=== PATIENT | male | born 1960 | race Caucasian/White ===

== ENCOUNTER 2021-12-10 13:22 | Inpatient (IN) | payer OTHER ==
[~2021-12-10] VITALS: Ht 190.5 cm; Wt 131.5 kg
[2021-12-10 13:22] VITALS: BP_SYST 144
--- NOTE | 2021-12-10 13:25 | NUR ---
BROUGHT IN BY [facility] AND TRIAGED. WILL ASSUME CARE. DR HSU EVALUATING PT UPON ARRIVAL TO ER.
--- NOTE | 2021-12-10 13:25 | NUR ---
PT STATES HE WAS PREVIOUSLY DX WITH GALLSTONES WHILE AT [facility] AND NEVER DID FOLLOW UP FOR SURGERY. ARRIVES TO ER TODAY WITH RIGHT UPPER QUAD PAIN WITH NAUSEA. PT STATES HE NOW IS READY TO GET HIS GALLBLADDER OUT.
[2021-12-10] MEDS ORDERED: KETOROLAC TROMETHAMINE 60 MG/2 ML VIAL IM ONE (13:30)
[2021-12-10] MEDS ORDERED: ONDANSETRON 4 MG ODT TAB PO ONE (13:30)
[2021-12-10] MEDS ORDERED: ROSU10TA2 PO (13:32)
[2021-12-10] MEDS ORDERED: ATEN-41 PO (13:32)
[2021-12-10] MEDS ORDERED: LEVO125T8 PO (13:32)
[2021-12-10] MEDS ORDERED: ASPI-1393 PO (13:32)
--- NOTE | 2021-12-10 13:35 | NUR ---
Medication reconciliation completed with information provided by [facility] BROUGHT IN BY PATIENT. Any prior medication reconciliation on file was reviewed and corrected.
--- NOTE | 2021-12-10 13:42 | NUR ---
MEDICATED ORDERED. [facility]
--- NOTE | 2021-12-10 14:13 | NUR ---
LABS BEING DRAWN AT BEDSIDE, URINE OBTAINED FOR TESTING
[2021-12-10 14:27] LABS: BILIRUBIN,URINE 3+ (NEGATIVE); CLARITY/URINE CLEAR (CLEAR); COLOR,URINE RED (YELLOW); GLUCOSE,URINE TRACE (NEGATIVE); HEMATOCRIT 44.9 % (36-54); HEMOGLOBIN 15.4 g/dL (14.0-18.0); KETONES,URINE TRACE (NEGATIVE); LEUKOCYTE ESTERASE ,URINE TRACE (NEGATIVE); MEAN CORPUSCULAR HEMOGLOBIN 32 pg (27-31); MEAN CORPUSCULAR HGB CONC 34 % (32-36); MEAN CORPUSCULAR VOLUME 92 fL (79.0-98.0); NITRITE, URINE POSITIVE (NEGATIVE); PLATELET COUNT (AUTO) 150 K/uL (130-430); PROTEIN URINE 3+ (NEGATIVE); RED BLOOD CELL COUNT(AUTO) 4.87 MIL/uL (4.2-6.2); RED CELL DISTRIBUTION WIDTH 14.9 % (9.0-15.0); WHITE BLOOD COUNT (AUTO) 11.5 K/uL (4.8-10.8)
[2021-12-10 14:35] LABS: BLOOD, URINE TRACE (NEGATIVE); UROBILINOGEN,URINE >=8 (0.2-1.0)
[2021-12-10 14:36] LABS: CALCIUM 8.3 mg/dL (8.4-11.0); CREATININE 1.03 mg/dL (0.55-1.30)
[2021-12-10 14:38] LABS: BACTERIA,URINE None Seen /HPF (None Seen); MUCUS,URINE None Seen /LPF (None Seen)
--- NOTE | 2021-12-10 14:44 | NUR ---
PT REPOSITIONED AND EVALUATED. PT STATES PAIN LEVEL IS 3/10 AFTER GETTING PAIN MEDS, NO LONGER NAUSEATED. GIVEN ICE CHIPS AFTER CLEARING WITH DR EGAN.
[2021-12-10 14:48] LABS: ALBUMIN 2.8 g/dL (3.4-4.8); C-REACTIVE PROTEIN QUANT 2.7 mg/dL (0-0.5); TOTAL BILIRUBIN 6.1 mg/dL (0.0-1.0)
[2021-12-10] MEDS ORDERED: ONDANSETRON HCL 4 MG/2 ML VIAL IVP ONE (15:00)
[2021-12-10] MEDS ORDERED: NACL 0.9% 1,000 ML IV ONE ×2 (15:00→20:15)
[2021-12-10] MEDS ORDERED: MORPHINE 4 MG INJ. 4 MG/ML VIAL IVP ONE ×2 (15:00→18:45)
[2021-12-10 15:10] LABS: BAND % (MANUAL) 42 % (0-6); BASOPHILS % (MANUAL) 0 % (0-2); EOSINOPHILS % (MANUAL) 1 % (0-7); LYMPHOCYTES % (MANUAL) 4 % (20-46); MONOCYTES % (MANUAL) 1 % (0-11)
--- NOTE | 2021-12-10 15:12 | NUR ---
COVID-19 CAYDEN SWAB OBTAINED, LABELED, AND SENT TO THE LAB.
[2021-12-10 15:15] LABS: URINE SULFO SALICYLIC ACID NEGATIVE (NEGATIVE)
--- NOTE | 2021-12-10 15:25 | NUR ---
MEDICATED ORDERED, REPOSITIONED WITH ASSIST OF 2 STAFF.
--- NOTE | 2021-12-10 15:48 | NUR ---
[facility] called back to speak to dr. kay regarding pt status.
--- NOTE | 2021-12-10 15:53 | NUR ---
Son at bedside
[2021-12-10] MEDS ORDERED: PIPERACILLIN/TAZO 3.375 GM in NS 50 ML IV ONE (16:00)
[2021-12-10] MEDS ORDERED: PIPERACILLIN/TAZOBACTAM 3.375 GM/VIAL (ZOSYN) IV ONE (16:00)
--- NOTE | 2021-12-10 16:06 | NUR ---
Patient medicated per order
--- NOTE | 2021-12-10 17:26 | NUR ---
Pending [facility] transport arrangements, patient aware,has no questions at this time.
--- NOTE | 2021-12-10 18:52 | NUR ---
Closing Note: Report given to incoming noc RN, all cares endorsed.
--- NOTE | 2021-12-10 19:17 | NUR ---
REC REPORT FROM ELAN MANUEL. PT RESTING IN BED AWAKE AND TALKING ON PHONE. PT A&O X4, AND FOLLOWING COMMANDS. VSS. SAFETY PRECAUTIONS IN PLACE AND CONNECTED TO MONITOR.
[2021-12-10] MEDS ORDERED: MORPHINE 2 MG/ML INJ. SYRINGE IVP PRN ×2 (20:15)
[2021-12-10] MEDS ORDERED: MUPIROCIN 2% TOPICAL OINTMENT 22 GM NS PRN (20:15)
[2021-12-10] MEDS ORDERED: LORazepam 2 MG/ML VIAL IVP PRN (20:15)
[2021-12-10] MEDS ORDERED: ONDANSETRON HCL 4 MG/2 ML VIAL IVP PRN (20:15)
[2021-12-10] MEDS ORDERED: D5NS 1,000 ML IV ONE (20:15)
[2021-12-10] MEDS ORDERED: POTASSIUM CHLORIDE 20 MEQ TAB.PRT.SR PO PRN (20:15)
[2021-12-10] MEDS ORDERED: MAGNESIUM SULFATE 50 ML IV PRN (20:15)
--- NOTE | 2021-12-10 20:19 | NUR ---
Admit bed requested Patient will be admitted to care of Admitted to ICU unit. Diagnosis Severe Pancreatitis Inpatient (Yes or No) yes Observation (Yes or No) no Orientation concerns or request close to nursing station (Yes or No) no Covid Status negative On vent or bipap no Isolation requirements no Needs a sitter no From Home (Yes or if No enter name of facility) yes Requires Dialysis (Yes or No) no Med Rec Completed (Yes of No) yes
--- NOTE | 2021-12-10 20:54 | NUR ---
Pt sating 90% on RA. A&O X4, AND FOLLOWING COMMANDS. PT PLACED ON NC AT 3L, 02 SAT NOW 94%.
[2021-12-10] MEDS ORDERED: ACETAMINOPHEN 325 MG TABLET PO PRN (21:00)
[2021-12-10] MEDS: ACETAMINOPHEN 325 MG TABLET PO PRN (22:08)
--- NOTE | 2021-12-10 22:25 | NUR ---
Patient will be admitted to care of Dr. VERDE. Admitted to ICU unit. Will go to room ICU8. Belongings list completed. Complete and up to date summary report printed. SBAR report given to Pauline MANUEL at bedside with opportunity for questions.
[2021-12-10 22:49] VITALS: BP_SYST 104
[2021-12-10 22:53] VITALS: BP_SYST 104
[2021-12-10 23:00] VITALS: BP_SYST 112
[2021-12-10] MEDS: PIPERACILLIN/TAZO 3.375 GM in NS 50 ML IV SCH (23:56)
[2021-12-11] VITALS (18 sets, daily range): BP systolic 106–145
[2021-12-11] MEDS: PIPERACILLIN/TAZO 3.375 GM in NS 50 ML IV SCH ×3 (06:17→18:49)
[2021-12-11] MEDS: ACETAMINOPHEN 325 MG TABLET PO PRN ×2 (06:17→16:51)
[2021-12-11] MEDS: LEVOTHYROXINE SODIUM 0.125 MG TABLET PO SCH (06:17)
--- NOTE | 2021-12-11 07:00 | NUR ---
CONSULT CONSULT CALLED FOR DR. ARAMBULA Addendum: 12/11/21 at 8004 by Shirley De Leon RN INCORRECT NOTE
--- NOTE | 2021-12-11 07:00 | NUR ---
CONSULT CONSULT CALLED FOR DR. HANSON
--- NOTE | 2021-12-11 07:05 | NUR ---
CONSULT CONSULT CALLED FOR DR. DAVENPORT.
--- NOTE | 2021-12-11 07:12 | NUR ---
@0712 Assumed pt care received report from HILARY MANUEL, met pt awake alert oriented x4 denies pain vitals signs stable, newly admitted to ICU, orientation to the unit call light at reach bed in low position, education on care plan and he verbalized understanding. PT NPO due to elevated Lipase 9470, AMYLASE 9 and as at this hydration via IV D5NS @100ML/HR Will continue to monitor and treat as per care plan.
[2021-12-11 08:02] LABS: CREATININE 1.38 mg/dL (0.55-1.30)
--- NOTE | 2021-12-11 08:06 | NUR ---
Dr Blunt updates on pt's condition vitals signs saw pt at the bedside and received some orders including MRCP.
--- NOTE | 2021-12-11 08:09 | NUR ---
Dr Alfaro's rounds on the pt at the bedside updates on pt's condition on admission, chief complaints, lab values elevated Amylase and Lipase. Order received LR 1000 cc bolus. As at this time pt was awake alert oriented and active in discussion
[2021-12-11] MEDS ORDERED: LR 1,000 ML IV ONE (08:30)
[2021-12-11 09:00] LABS: BASOPHILS % (AUTO) 0.1 % (0.0-2.0); HEMATOCRIT 40.1 % (36-54); HEMOGLOBIN 13.5 g/dL (14.0-18.0); LYMPHOCYTES # (AUTO) 0.2 K/uL (1.0-5.5); LYMPHOCYTES % (AUTO) 0.8 % (20.5-51.5); MEAN CORPUSCULAR HEMOGLOBIN 32 pg (27-31); MEAN CORPUSCULAR HGB CONC 34 % (32-36); MEAN CORPUSCULAR VOLUME 94 fL (79.0-98.0); MONOCYTES # (AUTO) 0.4 K/uL (0.0-1.0); MONOCYTES % (AUTO) 1.3 % (1.7-9.3); NEUTROPHILS # (AUTO) 28.5 K/uL (1.8-7.7); NEUTROPHILS % (AUTO) 97.8 % (40.0-70.0); PLATELET COUNT (AUTO) 114 K/uL (130-430); RED BLOOD CELL COUNT(AUTO) 4.27 MIL/uL (4.2-6.2); RED CELL DISTRIBUTION WIDTH 15.2 % (9.0-15.0); WHITE BLOOD COUNT (AUTO) 29.2 K/uL (4.8-10.8)
[2021-12-11] MEDS: D5NS 1,000 ML IV SCH ×2 (09:32→19:30)
--- NOTE | 2021-12-11 11:50 | NUR ---
MRCP incomplete Pt was taken to MRI trailer for MRCP the test was incomplete due to pt's weight versus MRI scanner diameter too narrow. Dr Blunt notified and there is ongoing preparation to transfer pt to [facility].
--- NOTE | 2021-12-11 12:00 | NUR ---
Dr Capone was on the unit and notified of consult
--- NOTE | 2021-12-11 12:11 | NUR ---
Pt said that he is diabetic, but NPO as at this blood sugar checked was 123 no complain and asymptomatic MD aware as part of pt's hx.
[2021-12-11 12:32] LABS: INR 1.3 (0.80-1.20); PROTHROMBIN TIME 12.5 SECS (9.5-12.5)
[2021-12-11] MEDS: ATENOLOL 25 MG TABLET(TENORMIN) PO SCH (12:52)
--- NOTE | 2021-12-11 13:05 | NUR ---
GENE Lynne called from [facility]. [phone]. UR completed and all questions answered. Maged said she will talk with her physician and let us know if they will take him today.
--- NOTE | 2021-12-11 13:30 | NUR ---
Pt transfer to room 118 Telemetry unit as per MD'S order SBAR report given to Bee MANUEL. at this time pt awake alert oriented vitals signs stable denies pain and belongings with pt.
--- NOTE | 2021-12-11 13:34 | NUR ---
Referral to [facility] made . Patient agreed to transfer to [facility], when bed is available. Received a call from Maged [phone]-cm at [facility]. She will request a transfer for the patient to the first available bed at a [facility] facility
--- NOTE | 2021-12-11 13:40 | NUR ---
Arrival to MST unit Patient was transferred to MST unit from ICU via gurney. Patient is AOx4. Bed rest. Breathing is even and nonlabored, on room air. Obtained Vital signs, as documented. No s.s of distress noted. Patient denies pain. Denies SOB. Patient has been oriented to room and use of call light. Educated patient on fall prevention and safety precautions. Family at bedside. Bed locked, at lowest position, and exist alarm on. Call light within reach.
--- NOTE | 2021-12-11 14:06 | NUR ---
Spoke w/ Maged at [facility]- they will not transfer today-they will send authorization for patient stay until tomorrow.
--- NOTE | 2021-12-11 15:48 | NUR ---
CONSULTATION PAGED REASON FOR CONSULTATION:SEPSIS WAS CONSULT CALLED?Y PERSON WHO WAS NOTIFIED:JULIEN CONSULTING PHYSICIAN:VICTORIA FLORES NECK BAND SETTER SPECIALTY:INFECTIOUS DISEASE NECK BAND SETTER PHONE NUMBER:[phone] REQUESTING PHYSICIAN:DR.[facility]
[2021-12-11] MEDS: VANCOMYCIN HCL 1,250 MG in NS 250 ML IV SCH (16:25)
--- NOTE | 2021-12-11 17:00 | NUR ---
Notes Patient is resting. Denies pain. Patient had low grade fever of 100.2 F. Administered Acetaminophen and began cooling measures. No shivering noted. No distress noted. Safety precautions in place and call light within reach. Monitoring temperature.
--- NOTE | 2021-12-11 19:00 | NUR ---
Closing Notes Patient is resting. Patient NPO, ice chips are okay. No s.s of distress noted. Patient's temperature is 100F. Cooling measures in place. No shivering noted. Patient denies pain. IVF running, IV patent. Dr. Lock speaking to patient at this time. All needs met. Safety precautions in place and call light within reach. Addendum: 12/11/21 at 2001 by Bee Garcia LVN Closing Notes Patient is resting. Patient NPO, ice chips are okay. No s.s of distress noted. Patient's temperature is 100F. Cooling measures in place. No shivering noted. Patient denies pain. IVF running, IV patent. Dr. Lock speaking to patient at this time. All needs met. Safety precautions in place and call light within reach. 1944 Dr. Lock scheduled patient for surgery for tonight. Noc Shift MAR Roberts made aware. Consents have been signed. EKG taken, Dr. Lock saw EKG. Checklist started. Waiting for OR team to arrive.
--- NOTE | 2021-12-11 19:15 | NUR ---
change of shift.pt.presents admit dx:pancreatitis.@bedside assessing the pt.pt.had presented temp late w/in day shift.lion attended to the temp per temp protocol.no c/o pain,nausea.pt.presents diet status:npo.pt.presents iv access location lt.antecubital.iv fluids infusing.pt.capable to reposition sefl/ambulate un-assisted.call light/telephone w/in access of the pt.
--- NOTE | 2021-12-11 20:00 | NUR ---
has ordered surgery:lap choley/cholangiogram.sanjay;laminating machine operator has attended to the surgery paper-work;has witnessed pt.sign the surgery consent. i have attended to the review of the orders;pre-op:labs,covid,mrsa,cxr,ekg.check-list,print out h/p,labs,covid,mrsa,cxr,ekg. i noted the wbc level had elevated w/in 12hrs:11,5 19.2..;anesthesiologist present.i conveye the wbc level and the pt.presented temp w/in the last 3hrs. ordered hematology stat.v/s assessed noted temp.99.0.cxr,pt/inr ordered stat.
--- NOTE | 2021-12-11 20:30 | NUR ---
present.the cxr,pt/inr labs attended to pending results.the wbc status;26.2 conveyed to .
[2021-12-11 20:43] LABS: HEMATOCRIT 40.7 % (36-54); HEMOGLOBIN 13.7 g/dL (14.0-18.0); MEAN CORPUSCULAR HEMOGLOBIN 32 pg (27-31); MEAN CORPUSCULAR HGB CONC 34 % (32-36); MEAN CORPUSCULAR VOLUME 94 fL (79.0-98.0); RED BLOOD CELL COUNT(AUTO) 4.34 MIL/uL (4.2-6.2); RED CELL DISTRIBUTION WIDTH 15.1 % (9.0-15.0); WHITE BLOOD COUNT (AUTO) 26.6 K/uL (4.8-10.8)
[2021-12-11 20:54] LABS: PLATELET COUNT (AUTO) 113 K/uL (130-430)
--- NOTE | 2021-12-11 21:00 | NUR ---
pt.transferred to er-dept per staff.all surgery paper work attended to.the labs,cxr,ekg,covid,mrsa.print out/surgery paper work.check-list.
[2021-12-11 21:01] LABS: BAND % (MANUAL) 21 % (0-6); BASOPHILS % (MANUAL) 0 % (0-2); EOSINOPHILS % (MANUAL) 0 % (0-7); LYMPHOCYTES % (MANUAL) 1 % (20-46); MONOCYTES % (MANUAL) 1 % (0-11)
[2021-12-11] MEDS ORDERED: fentaNYL CITRATE/PF 100 MCG/2 ML AMP IVP PRN ×2 (22:15)
[2021-12-11] MEDS ORDERED: ONDANSETRON HCL 4 MG/2 ML VIAL IVP PRN (22:15)
[2021-12-11] MEDS ORDERED: METOCLOPRAMIDE HCL 10 MG/2 ML VIAL IVP PRN (22:15)
[2021-12-11] MEDS ORDERED: fentaNYL CITRATE/PF 100 MCG/2 ML AMP ONE (23:15)
[2021-12-11] MEDS ORDERED: SEVOFLURANE 15 MIN GAS INH ONE (23:15)
[2021-12-11] MEDS ORDERED: MIDAZOLAM HCL 5 MG/ML VIAL (VERSED) IV ONE (23:15)
[2021-12-11] MEDS ORDERED: NS IRRIG SOLN 1000 ML IR ONE (23:15)
[2021-12-11] MEDS ORDERED: hydrALAZINE HCL 20 MG/ML VIAL ONE (23:15)
[2021-12-11] MEDS ORDERED: ROCURONIUM BROMIDE 10 MG/ML (ZEMURON) ONE (23:15)
[2021-12-11] MEDS ORDERED: NS 1000 ML IV.SOLN IV ONE (23:15)
[2021-12-11] MEDS ORDERED: BUPIVACAINE /EPINEPHRINE/PF 0.5% 30 ML VIAL INJ ONE (23:15)
[2021-12-11] MEDS ORDERED: PROPOFOL 200MG/ 20ML VIAL (DIPRIVAN) IV ONE (23:15)
[2021-12-11] MEDS ORDERED: LR 1,000 ML IV.SOLN IV ONE (23:15)
[2021-12-11] MEDS ORDERED: LABETALOL HCL 20 MG/4 ML CARTRIDGE IVP ONE (23:27)
[2021-12-11] MEDS ORDERED: ALBUTEROL SULFATE 0.083% 2.5 MG/3 ML VIAL.NEB INH PRN (23:30)
[2021-12-11] MEDS ORDERED: IPRATROPIUM/ALBUTEROL SULFATE 3 ML AMPUL.NEB (DUONEB) INH ONE (23:30)
[2021-12-11] MEDS ORDERED: ALBUTEROL SULFATE 0.083% 2.5 MG/3 ML VIAL.NEB INH ONE ×2 (23:30→23:45)
[2021-12-11] MEDS ORDERED: ACETAMINOPHEN I.V. 1000 MG 100 ML IV ONE (23:34)
[2021-12-11] MEDS ORDERED: IPRATROPIUM/ALBUTEROL SULFATE 3 ML AMPUL.NEB (DUONEB) ONE (23:45)
[2021-12-12] VITALS (16 sets, daily range): BP systolic 113–159
--- NOTE | 2021-12-12 00:10 | NUR ---
Opening notes [facility] Patient was transferred to ICU from PACU with no signs of agitation. Patient's vital signs blood pressure 125/64, respirations 23, heart rate 106, and SPO2 100% on 10L simple mask. Patient has restraints on when he first came in from [facility] but was removed immediately in the ICU. Patient had laparoscopic cholecystectomy with intraoperative cholangiogram procedure. Bed is locked and in lowest position, call light button within reach, fall and safety precautions is in place. Addendum: 12/12/21 at 0045 by Roxana Maya RN Switched 10L simple mask to 4L Nasal cannula. Patient's SPO2 is 98%.
--- NOTE | 2021-12-12 00:15 | NUR ---
pt.transferred to unit;icu from pacu unit.pt.did not return to [facility];[id number] post-op.i have accounted for pt's belongings taken to icu bed:#5.i did not have any contact/interaction w pt.post-op. Addendum: 12/12/21 at 0205 by Armando Zavala RN icu shiela;jamia received the pt.post-op.pt's belongings/abx ivpb's presented to bill.
[2021-12-12] MEDS: PIPERACILLIN/TAZO 3.375 GM in NS 50 ML IV SCH ×4 (00:32→17:30)
[2021-12-12] MEDS: D5NS 1,000 ML IV SCH (04:57)
[2021-12-12] MEDS: VANCOMYCIN HCL 1,250 MG in NS 250 ML IV SCH (04:58)
[2021-12-12] MEDS: LEVOTHYROXINE SODIUM 0.125 MG TABLET PO SCH (06:27)
[2021-12-12 07:10] LABS: BASOPHILS % (AUTO) 0.2 % (0.0-2.0); EOSINOPHILS % (AUTO) 0.2 % (0.0-4.0); HEMATOCRIT 39.1 % (36-54); HEMOGLOBIN 13.1 g/dL (14.0-18.0); LYMPHOCYTES # (AUTO) 0.5 K/uL (1.0-5.5); MEAN CORPUSCULAR HEMOGLOBIN 31 pg (27-31); MEAN CORPUSCULAR HGB CONC 34 % (32-36); MEAN CORPUSCULAR VOLUME 93 fL (79.0-98.0); MONOCYTES # (AUTO) 0.3 K/uL (0.0-1.0); MONOCYTES % (AUTO) 1.4 % (1.7-9.3); NEUTROPHILS # (AUTO) 23.9 K/uL (1.8-7.7); PLATELET COUNT (AUTO) 106 K/uL (130-430); RED BLOOD CELL COUNT(AUTO) 4.18 MIL/uL (4.2-6.2); RED CELL DISTRIBUTION WIDTH 15.2 % (9.0-15.0); WHITE BLOOD COUNT (AUTO) 24.9 K/uL (4.8-10.8)
--- NOTE | 2021-12-12 07:19 | NUR ---
RECEIVED BEDSIDE REPORT FROM MAR BARROSO. PT IS A&0X4. RESTING IN BED. S/P CHOLECYSTECTOMY ON 12/11. PT DENIES PAIN AT THIS TIME. VOIDING IN URINAL. L A/C 20G WITH D5 NS RUNNING AT 100 MLS/HR. VS STABLE.
[2021-12-12 07:21] LABS: ALBUMIN 2.1 g/dL (3.4-4.8); CALCIUM 7.7 mg/dL (8.4-11.0); CREATININE 1.12 mg/dL (0.55-1.30); TOTAL BILIRUBIN 4.6 mg/dL (0.0-1.0)
--- NOTE | 2021-12-12 08:10 | NUR ---
TRANSFERRED PT TO TELE. GAVE REPORT TO CARMEN.
--- NOTE | 2021-12-12 08:15 | NUR ---
Assume of care/ MST unit Patient is AOX4. Transferred from ICU unit. Patient able to transfer with assist. ON 4 L O2 via NC. Breathing is even and nonlabored. Patient denies pain. Denies SOB. Vital signs obtained, as documented. Tele monitor placed. IVF running, IV patent Patient oriented to room and call light use. Bedside report received from MAR Ardon. RN Vidal present. Patient educated on fall prevention, safety, and incentive spirometer use. Bed locked, at lowest position, and alarm on. Call light within reach.
--- NOTE | 2021-12-12 08:15 | NUR ---
Report received from MAR Stack with KEVIN Gamboa and MAR Drake. Patient arrived to room by hospital bed. biochemistry teacher placed on patient. Patient on oxygen via nasal cannula per MD order. Alert and oriented x4. No neuro deficits. No c/o pain. Patient's Respiration even and unlabored. Patient able to transfer with assist to telemetry hospital bed. Will continue to monitor. Call light within reach.
--- NOTE | 2021-12-12 08:45 | NUR ---
Paged and spoke to Dr. Lock. Patient on clear liquid diet. Called for breakfast tray for patient.
[2021-12-12 08:49] LABS: NEUTROPHILS % (AUTO) 96.2 % (40.0-70.0)
[2021-12-12] MEDS: ATENOLOL 25 MG TABLET(TENORMIN) PO SCH (09:22)
--- NOTE | 2021-12-12 12:20 | NUR ---
Notes Patient is eating lunch. Tolerating well. Denies severe pain. Denies nausea. No emesis. Patient's breathing is even and nonlabored, on room air. No SOB noted. IVF running. IV patent. Safety precautions in place and call light within reach.
[2021-12-12] MEDS ORDERED: INSULIN REGULAR, HUMAN 100 UNITS/ML, 3 ML VIAL (humuLIN R) SUBCUT PRN (12:45)
--- NOTE | 2021-12-12 15:00 | NUR ---
Critical Lab Paged and spoke to Dr. Javier. made aware of Procalcitonin 8.24. No orders received.
--- NOTE | 2021-12-12 17:35 | NUR ---
Notes Patient is resting, no s.s of distress noted. Breathing is even and nonlabored, on NC at 2.5 L O2. Spo2 at 95%. Denies SOB. Denies severe pain. Denies nausea. Does not request pain medication. Educated patient to call for assistance he wants to get up. Educated on fall prevention. Patient verbalized understanding. Bed locked, at lowest position, and alarm on. Call light within reach.
--- NOTE | 2021-12-12 19:05 | NUR ---
Closing Notes Patient is eating dinner. Tolerating well. Denies nausea. Breathing is even and nonlabored, on room air. Spo2 at 94-96%. No s.s of distress noted. Denies severe pain. IV patent. Urinal within reach. All needs met. Bed locked, alarm on, and at lowest position. Call light within reach. Endorsed care to oncoming nurse.
[2021-12-12] MEDS ORDERED: LABETALOL 100 MG/ 20ML VIAL ONE (21:02)
[2021-12-12] MEDS: ACETAMINOPHEN 325 MG TABLET PO PRN (21:04)
[2021-12-12] MEDS: DOCUSATE SODIUM 100 MG CAPSULE PO PRN (21:05)
[2021-12-12] MEDS: ZOLPIDEM TARTRATE 5 MG TABLET PO PRN (21:17)
[2021-12-13] VITALS (7 sets, daily range): BP systolic 126–178
[2021-12-13] MEDS: PIPERACILLIN/TAZO 3.375 GM in NS 50 ML IV SCH ×4 (00:20→18:03)
[2021-12-13] MEDS: LEVOTHYROXINE SODIUM 0.125 MG TABLET PO SCH (05:16)
[2021-12-13] MEDS: ACETAMINOPHEN 325 MG TABLET PO PRN (05:31)
[2021-12-13] MEDS ORDERED: IBUPROFEN 600 MG TABLET PO PRN (07:15)
[2021-12-13 07:40] LABS: BASOPHILS % (AUTO) 0.2 % (0.0-2.0); EOSINOPHILS # (AUTO) 0.2 K/uL (0.0-0.4); EOSINOPHILS % (AUTO) 1.1 % (0.0-4.0); HEMOGLOBIN 13.3 g/dL (14.0-18.0); LYMPHOCYTES # (AUTO) 0.7 K/uL (1.0-5.5); LYMPHOCYTES % (AUTO) 3.6 % (20.5-51.5); MEAN CORPUSCULAR HEMOGLOBIN 32 pg (27-31); MEAN CORPUSCULAR HGB CONC 34 % (32-36); MEAN CORPUSCULAR VOLUME 93 fL (79.0-98.0); MONOCYTES # (AUTO) 0.7 K/uL (0.0-1.0); MONOCYTES % (AUTO) 3.5 % (1.7-9.3); NEUTROPHILS # (AUTO) 17.2 K/uL (1.8-7.7); NEUTROPHILS % (AUTO) 91.6 % (40.0-70.0); PLATELET COUNT (AUTO) 151 K/uL (130-430); RED BLOOD CELL COUNT(AUTO) 4.19 MIL/uL (4.2-6.2); RED CELL DISTRIBUTION WIDTH 15.2 % (9.0-15.0); WHITE BLOOD COUNT (AUTO) 18.8 K/uL (4.8-10.8)
[2021-12-13 08:17] LABS: ALBUMIN 2.1 g/dL (3.4-4.8); BILIRUBIN,DIRECT 2.1 mg/dL (0.0-0.3); CALCIUM 8.8 mg/dL (8.4-11.0); CREATININE 0.92 mg/dL (0.55-1.30)
--- NOTE | 2021-12-13 08:35 | NUR ---
INITIAL ROUNDS Received pt AAOx4, no further s/s of fever-temperature is 97.2 degrees F, no s/s resp distress, no c/o pain or discomfort. Plan of care for the day reviewed with pt-pt verbalized his understanding. Pt encouraged to use his incentive spirometer - pt stated he will after he finishes his breakfast. BLE with SCDs in place. Noted 5 small dressings to abd clean, dry and intact. Pain management, skin and safety discussed-teach back done. Pt encouraged to call nursing for assist out of bed for safety-pt stated he will. Call light within reach.
[2021-12-13] MEDS: ATENOLOL 25 MG TABLET(TENORMIN) PO SCH (10:10)
[2021-12-13] MEDS: NORMAL SALINE 5 ML DISP.SYRIN IVF SCH ×2 (15:03→22:31)
--- NOTE | 2021-12-13 16:10 | NUR ---
AMBULATION Pt assisted out of bed to the bathroom, pt voided, then pt ambulated to bedside chair. Pt tolerated well.
--- NOTE | 2021-12-13 18:27 | NUR ---
CLOSING NOTE Pt sitting up in bed eating his dinner, no c/o GI distress, no s/s resp distress, no c/o pain or discomfort. IVPB infusing well at ordered rate with no s/s infiltration to site. Pt given fresh ice water. Call light within reach.
--- NOTE | 2021-12-13 18:35 | NUR ---
Dietitian Recommendations * Continue CCHO, GI soft diet and advance as tolerated Please refer to nutrition assessment for details, thanks! CC, MPH, RDN
[2021-12-13] MEDS: ZOLPIDEM TARTRATE 5 MG TABLET PO PRN (22:29)
[2021-12-13] MEDS: DOCUSATE SODIUM 100 MG CAPSULE PO PRN (22:29)
[2021-12-14] VITALS: BP_SYST 145
[2021-12-14] MEDS: PIPERACILLIN/TAZO 3.375 GM in NS 50 ML IV SCH ×3 (00:52→12:50)
[2021-12-14 04:00] VITALS: BP_SYST 155
[2021-12-14] MEDS: LEVOTHYROXINE SODIUM 0.125 MG TABLET PO SCH (06:58)
[2021-12-14] MEDS: NORMAL SALINE 5 ML DISP.SYRIN IVF SCH (06:58)
[2021-12-14 08:18] LABS: BASOPHILS # (AUTO) 0.1 K/uL (0.0-0.2); BASOPHILS % (AUTO) 0.6 % (0.0-2.0); EOSINOPHILS # (AUTO) 0.2 K/uL (0.0-0.4); EOSINOPHILS % (AUTO) 1.7 % (0.0-4.0); HEMATOCRIT 40.2 % (36-54); HEMOGLOBIN 13.7 g/dL (14.0-18.0); LYMPHOCYTES % (AUTO) 8.3 % (20.5-51.5); MEAN CORPUSCULAR HEMOGLOBIN 32 pg (27-31); MEAN CORPUSCULAR HGB CONC 34 % (32-36); MEAN CORPUSCULAR VOLUME 93 fL (79.0-98.0); MONOCYTES # (AUTO) 1.1 K/uL (0.0-1.0); NEUTROPHILS # (AUTO) 9.6 K/uL (1.8-7.7); NEUTROPHILS % (AUTO) 80.4 % (40.0-70.0); PLATELET COUNT (AUTO) 196 K/uL (130-430); RED BLOOD CELL COUNT(AUTO) 4.33 MIL/uL (4.2-6.2); RED CELL DISTRIBUTION WIDTH 15.1 % (9.0-15.0); WHITE BLOOD COUNT (AUTO) 11.9 K/uL (4.8-10.8)
[2021-12-14 08:33] LABS: CALCIUM 9.1 mg/dL (8.4-11.0)
[2021-12-14] MEDS ORDERED: HYDR-3917 PO (08:49)
[2021-12-14] MEDS: ATENOLOL 25 MG TABLET(TENORMIN) PO SCH (09:37)
[2021-12-14] MEDS ORDERED: ATORVASTATIN 20 MG TABLET PO ONE (09:45)
[2021-12-14 12:41] VITALS: BP_SYST 118
[2021-12-14 13:25] VITALS: BP_SYST 131
--- NOTE | 2021-12-14 15:00 | NUR ---
0800: NO S/S OF ANY ACUTE DISTRESS NOTED. ABLE TO VERBALIZE NEEDS, S/P ABDOMINAL SURGERY WITH MULTIPLE SMALL DRESSING INTACT NO SWELLING, DESHISCENCE OR BLEEDING NOTED. NO SHORTNESS OF BREATH NOTED. WILL CONTINUE TO MONITOR PATIENT 1200: REMAINED STABLE W/O ANY DISCOMFORT NOTED. 1430: PATIENT DISCHARGE HOME PER DR. VERDE. TO CONTINUE HOME MEDICATION BEFORE. F/U WITH OWN PRIMARY PHYSICIAN AND SURGEON NEXT WEEK. PATIENT VERBALIZE UNDERSTANDING AND WILL COMPLY WITH INFORMATION GIVEN.
[2021-12-14] MEDS ORDERED: AMOX-423 PO (16:56)
[2021-12-14] MEDS ORDERED: ENOXAPARIN SODIUM 30 MG/0.3 ML SYRINGE SUBCUT SCH (21:00)
[2021-12-15] MEDS ORDERED: HYDR-3917 PO (07:02)
[2021-12-15] MEDS ORDERED: ATORVASTATIN 20 MG TABLET PO SCH (09:00)
== END 2021-12-14 15:15 | disposition home or self-care (01) | DRG 853 ==
LOC: SED 13:22 → SIC 20:15 → STU 12-11 12:14 → SIC 12-11 12:20 → STU 12-11 13:38 → SIC 12-11 23:35 → STU 12-12 08:05
PROVIDERS: ADMIT General Practice; ATTEND General Practice
PROC: BF141ZZ Fluoroscopy of Gallbladder, Bile Ducts and Pancreatic Ducts using Low Osmolar Contrast (ICD-10-PCS; 2021-12-11)
PROC: 0FT44ZZ Resection of Gallbladder, Percutaneous Endoscopic Approach (ICD-10-PCS; principal; 2021-12-11 20:40)
DX: A41.9 Sepsis, unspecified organism (principal); K85.10 Biliary acute pancreatitis without necrosis or infection; K80.62 Calculus of gallbladder and bile duct with acute cholecystitis without obstruction; K83.09 Other cholangitis; E87.20 Acidosis, unspecified; E78.5 Hyperlipidemia, unspecified; E03.9 Hypothyroidism, unspecified; E66.01 Morbid (severe) obesity due to excess calories; K66.0 Peritoneal adhesions (postprocedural) (postinfection); K82.8 Other specified diseases of gallbladder; E11.9 Type 2 diabetes mellitus without complications; Z20.822 Contact with and (suspected) exposure to COVID-19; I10 Essential (primary) hypertension; R74.01 Elevation of levels of liver transaminase levels; Z80.3 Family history of malignant neoplasm of breast; Z87.891 Personal history of nicotine dependence; Z68.36 Body mass index [BMI] 36.0-36.9, adult
CPT/HCPCS: 36415; 71045; 76001; 76376; 80048; 80053; 80076; 81000; 82150; 82247; 82962; 83036; 83605; 83690; 83735; 85007; 85025; 85027; 85610-TC; 86140; 87040; 87081; 87086; 88304; 93005; 94640; 96365; 96372; 96375; 99285; C1727; G0378; J0131; J0360; J1815; J1885; J2060; J2250; J2270; J2405; J2543; J2704; J3010; J3370; J3490; J7030; J7042; J7050; J7120; J7613; Q0162; Q9967